=== PATIENT | female | born 1985 | race Caucasian/White ===

== ENCOUNTER 2018-05-10 14:43 | Emergency (ER) | payer SELFPAY ==
[2018-05-10 14:47] VITALS: BP 153/79; PULSE 80; RESP 20; TEMP 37.1; O2SAT 98
--- NOTE | 2018-05-10 15:21 | W.ED.GENAD ---
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 Tylenol and ibuprofen as needed for discomfort. You have an appointment next May 17 [address] Fuentes in women's wellness. Please keep appointment to discuss further diagnostic needs and treatment. If you develop new or worsening symptoms seek care urgently once again. Referrals: Siobhan Patterson MD [ [facility]YSICIAN] - ([phone]) Murray Chacon [Primary Care Provider] - Discharge Data Discharge Date/Time-TO BE ENTERED AT DEPARTURE: 05/10/18 17:11 Medical Decision Making Patient is a 32-year-old female presenting today with dysfunctional uterine bleeding. She reports that since the of her daughter, 4 years ago, she has had very heavy menses. Reports of the time of the of her child, she underwent a as well as bilateral tubal ligation. However, since then she has had heavy, extreme, horrific menses. Reports that she does get lightheaded around the time of her menses when she is bleeding. Cannot some have breakthrough. In between her regular menses. Last regular menstrual cycle was 1.5 weeks ago which lasted 8 days. She had spotting today but is not currently bleeding. She reports she was seen by an WAFER POLISHER after the of her child to discuss this and was advised that she was having miscarriages every month. She also reports that she has occasional twinges when she has her bleeding more so on the right side than the left. Is not currently endorsing any pain. States that she has chronic nausea associated with stress but no vomiting. No change in bowel habits. No change in urinary habits. Patient has history of anxiety, depression and dwarfism On exam, abdomen is soft and nontender. No acute abnormalities noted. Patient is noted to be slightly hypertensive at 153/79. Pulse of 80. Afebrile. Spoke with women's wellness was able to obtain the patient an appointment for next week with Dr. Fuentes Laboratory evaluation without significant abnormality. UPT is negative. No drop in hemoglobin. UA is normal. Discussed these findings with the patient. At this time, as the patient is going to be examined by an WAFER POLISHER next week, will hold off on pelvic exam particularly if she is not having any pain, discharge or bleeding at this time. We discussed new/worsening symptoms and when to seek care urgently once again. All of her questions and concerns were addressed she is in agreement this plan HPI General Mode of arrival: ambulatory. Date/Time Provider Initiated Documentation: 05/10/18 14:52. Limitations to Documentation: no limitations. Information obtained by: patient and family (friend). History of Present Illness 32 year old F presents to the emergency department with the chief complaint of heavy menstrual bleeding, described as mild (denies any pain at this time, no bleeding at this time), Patient started experiencing this year(s) (4) and it has been intermittent. No relieving factors improve symptom(s), No exacerbating factors reported . Patient notes weakness (when bleeding, none currently); denies chest pain, cough, fever/chills, headaches, loss of appetite, nausea/vomiting, rash, shortness of breath and syncope. Patient did receive the following treatments prior to arrival, none Related Data Home Medications Medication Instructions Recorded Confirmed Emergen-C 1 tab PO DAILY 05/10/18 05/10/18 Women's Multivitamin 1 tab PO DAILY 05/10/18 05/10/18 Allergies Allergy/AdvReac Type Severity Reaction Status Date / Time oxycodone HCl [From Percocet] Allergy Unverified 05/10/18 14:58 General Stated Complaint: WAFER POLISHER RAEANN: 3 Review of Systems Constitutional Reports as per HPI, Denies chills, Denies fatigue, Denies fever(s) and Denies headache(s) ENT Denies headache(s) Cardiovascular Reports as per HPI, Denies chest pain and Denies dyspnea Respiratory Denies dyspnea Gastrointestinal Reports as per HPI, Denies abdominal pain, Denies melena, Denies bloating, Denies change in bowel habits, Reports nausea (chronic, unchanged. Reports low appetite at baseline, no change) and Denies vomiting Genitourinary Reports as per HPI, Reports abnormal menses, Reports abnormal vaginal bleeding, Reports metrorrhagia, Denies hematuria, Denies urinary frequency, Reports menorrhagia, Reports dysmenorrhea, Denies dysuria, Denies pelvic pain, Denies urinary urgency, Denies vaginal discharge and Denies vaginal odor Musculoskeletal Reports as per HPI and Reports back pain (chronic, unchanged) Integumentary/Breasts Reports as per HPI and Denies rash Neurologic Denies headache(s) Endocrine Denies fatigue [facility] Medical History Dwarfism Joint pain Trichomonas infection Surgical History section Family History Father Dwarf Son Dwarf Social History Smoking/Tobacco Use Status: Current every day Exam Const General: cooperative, healthy appearing, comfortable, no acute distress and well developed Nutritional Appearance: average body habitus and well nourished Orientation: alert and awake HENHI Head: normal to inspection Mouth: moist mucous membranes Resp Effort & Inspection: normal respiratory effort, able to speak in complete sentences and no respiratory distress Auscultation: clear to auscultation bilaterally, no rales, no rhonchi and no wheezes Cardio Rate: regular rate Rhythm: regular rhythm Heart Sounds: S1 normal and S2 normal GI Inspection: normal to inspection, no abdominal wall ecchymosis, no edema and non-distended Palpation: soft, no hepatosplenomegaly, not firm, no guarding, not rigid, nontender and No ascites Percussion: normal to percussion Auscultation: normal bowel sounds Back/Spine/Pelvis Back: no CVA tenderness Skin General skin exam: no rashes or lesions noted Trauma: no lacerations or abrasions Neuro General: alert and awake Cognition: normal cognition Speech: speech normal Gait: normal gait Psych Appearance: grossly normal and well kempt Mental Status: mental status grossly normal Speech and Movement: speech and movement normal Course Vital Signs Temperature 37.1 C 05/10/18 14:47 Pulse 80 05/10/18 14:47 Respiratory Rate 20 05/10/18 14:47 Blood Pressure 153/79 H 05/10/18 14:47 Pulse Oximetry 98 12/21/18 14:47 Temperature 37.1 C 05/10/18 14:47 Temperature Source Temporal Artery Scan 05/10/18 14:47 Pulse 80 05/10/18 14:47 Respiratory Rate 20 05/10/18 14:47 Respiratory Effort Non-Labored 05/10/18 14:55 Blood Pressure 153/79 H 05/10/18 14:47 Blood Pressure Position Sitting 05/10/18 14:47 Pulse Oximetry 98 05/10/18 14:47 Oxygen Delivery Method Room Air 05/10/18 14:47 Oxygen Flow Rate 0 05/10/18 14:47 Pain Level 0 05/10/18 14:47
[2018-05-10 15:53] LABS: Abs Immature Grans 0.03 k/cumm (0.0-0.09); Absolute Basophil Count 0.07 k/cumm (0.0-0.2); Absolute Eosinophil Count 0.05 k/cumm (0.0-0.7); Absolute Lymphocyte Count 3.12 k/cumm (1.2-3.4); Absolute Monocyte Count 0.66 k/cumm (0.11-0.7); Absolute Neutrophil Count 6.91 k/cumm (1.2-6.7); Basophils % 0.6; Eosinophils % 0.5; HCT 42.4 % (36.0-46.0); HGB 14.9 g/dL (12.0-15.5); Immature Grans % 0.3; Lymphocytes % 28.8; Mean Corp. HGB Concentration 35.1 g/dL (32.0-36.0); Mean Corpuscular Volume 91.2 fL (80-95); Mean Platelet Volume 9.7 fL (8.0-11.0); Monocytes % 6.1; Neutrophils % 63.7; Platelet Count 392 x1000/uL (130-400); RBC 4.65 m/cumm (4.00-5.20); White Blood Cell Count 10.85 k/cumm (4.4-10.8)
[2018-05-10 15:53] LABS: Bilirubin Negative (Negative); Blood Negative (Negative); Clarity Clear; Glucose Negative (Negative); Ketones Negative (Negative); Leukocyte Esterase Negative (Negative); Nitrite Negative (Negative); Urobilinogen 0.2 EU/dL (Up TO 0.2)
[2018-05-10 16:06] LABS: ALT 18 U/L (12-78); AST 13 U/L (15-37); Albumin 4.2 g/dL (3.4-5.0); Alkaline Phosphatase 64 U/L (46-116); Anion Gap 9.2 mmol/L (3-11); BUN 6 mg/dL (7-18); Bilirubin, Total 0.4 mg/dL (0.2-1.0); CO2 27.8 mmol/L (21.0-32.0); CREATININE 0.54 mg/dL (0.55-1.02); Calcium 9.3 mg/dL (8.5-10.1); Chloride 104 mmol/L (98-107); Glucose 118 mg/dL (70-100); Potassium 3.8 mmol/L (3.5-5.1); Sodium 141 mmol/L (136-145); Total Protein 7.4 g/dL (6.4-8.2)
[2018-05-10 17:03] VITALS: BP 142/78; PULSE 70; RESP 14; O2SAT 100
--- NOTE | 2018-05-10 17:04 | ED.GENADUL_ITS ---
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 Tylenol and ibuprofen as needed for discomfort. You have an appointment next May 17 at [address] Fuentes in women's wellness. Please keep appointment to discuss further diagnostic needs and treatment. If you develop new or worsening symptoms seek care urgently once again. Referrals: Siobhan Patterson MD [ [facility] ST[facility]FF PHYSICIAN] - ([phone]) Murray Chacon [Primary Care Provider] - Discharge Data Discharge Date/Time-TO BE ENTERED AT DEPARTURE: 05/10/18 17:11 Medical Decision Making Patient is a 32-year-old female presenting today with dysfunctional uterine bleeding. She reports that since the of her daughter, 4 years ago, she has had very heavy menses. Reports of the time of the of her child, she underwent a as well as bilateral tubal ligation. However, since then she has had heavy, extreme, horrific menses. Reports that she does get lightheaded around the time of her menses when she is bleeding. Cannot some have breakthrough. In between her regular menses. Last regular menstrual cycle was 1.5 weeks ago which lasted 8 days. She had spotting today but is not currently bleeding. She reports she was seen by an SELF PROPELLED MINING MACHINE OPERATOR after the of her child to discuss this and was advised that she was having miscarriages every month. She also reports that she has occasional twinges when she has her bleeding more so on the right side than the left. Is not currently endorsing any pain. States that she has chronic nausea associated with stress but no vomiting. No change in bowel habits. No change in urinary habits. Patient has history of anxiety, depression and dwarfism On exam, abdomen is soft and nontender. No acute abnormalities noted. Patient is noted to be slightly hypertensive at 153/79. Pulse of 80. Afebrile. Spoke with women's wellness was able to obtain the patient an appointment for next week with Dr. Fuentes Laboratory evaluation without significant abnormality. UPT is negative. No drop in hemoglobin. UA is normal. Discussed these findings with the patient. At this time, as the patient is going to be examined by an SELF PROPELLED MINING MACHINE OPERATOR next week, will hold off on pelvic exam particularly if she is not having any pain, discha rge or bleeding at this time. We discussed new/worsening symptoms and when to seek care urgently once again. All of her questions and concerns were addressed she is in agreement this plan HPI General Mode of arrival: ambulatory . Date/Time Provider Initiated Documentation: 05/10/18 14:52 . Limitations to Documentation: no limitations . Information obtained by: patient and family (friend) . History of Present Illness 32 year old F presents to the emergency department with the chief complaint of heavy menstrual bleeding, described as mild (denies any pain at this time, no bleeding at this time), Patient started experiencing this year(s) (4) and it has been intermittent. No relieving factors improve symptom(s), No exacerbating factors reported . Patient notes weakness (when bleeding, none currently); denies chest pain, cough, fever/chills, headaches, loss of appetite, nausea/vomiting, rash, shortness of breath and syncope. 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 Reports low appetite at baseline, no change) and Denies vomiting Genitourinary Reports as per HPI, Reports abnormal menses, Reports abnormal vaginal bleeding, Reports metrorrhagia, Denies hematuria, Denies urinary frequency, Reports menorrhagia, Reports dysmenorrhea, Denies dysuria, Denies pelvic pain, Denies urinary urgency, Denies vaginal discharge and Denies vaginal odor Musculoskeletal Reports as per HPI and Reports back pain (chronic, unchanged) Integumentary/Breasts Reports as per HPI and Denies rash Neurologic Denies headache(s) Endocrine Denies fatigue [facility] Medical History Dwarfism Joint pain Trichomonas infection Surgical History section Family History Father Dwarf Son Dwarf Social History Smoking/Tobacco Use Status: Current every day Exam Const General: cooperative, healthy appearing, comfortable, no acute distress and well developed Nutritional Appearance: average body habitus and well nourished Orientation: alert and awake [facility] Head: normal to inspection Mouth: moist mucous membranes Resp Effort & Inspection: normal respiratory effort, able to speak in complete sentences and no respiratory distress Auscultation: clear to auscultation bilaterally, no rales, no rhonchi and no wheezes Cardio Rate: regular rate Rhythm: regular rhythm Heart Sounds: S1 normal and S2 normal GI Inspection: normal to inspection, no abdominal wall ecchymosis, no edema and non-distended Palpation: soft, no hepatosplenomegaly, not firm, no guarding, not rigid, nontender and No ascites Percussion: normal to percussion Auscultation: normal bowel sounds Back/Spine/Pelvis Back: no CVA tenderness Skin General skin exam: no rashes or lesions noted Trauma: no lacerations or abrasions Neuro General: alert and awake Cognition: normal cognition Speech: speech normal Gait: normal gait Psych Appearance: grossly normal and well kempt Mental Status: mental status grossly normal Speech and Movement: speech and movement normal Course Vital Signs Temperature 37.1 C 05/10/18 14:47 Pulse 80 05/10/18 14:47 Respiratory Rate 20 05/10/18 14:47 Blood Pressure 153/79 H 05/10/18 14:47 Pulse Oximetry 98 05/10/18 14:47 Temperature 37.1 C 05/10/18 14:47 Temperature Source Temporal Artery Scan 05/10/18 14:47 Pulse 80 05/10/18 14:47 Respiratory Rate 20 05/10/18 14:47 Respiratory Effort Non-Labored 05/10/18 14:55 Blood Pressure 153/79 H 05/10/18 14:47 Blood Pressure Position Sitting 05/10/18 14:47 Pulse Oximetry 98 05/10/18 14:47 Oxygen Delivery Method Room Air 05/10/18 14:47 Oxygen Flow Rate 0 05/10/18 14:47 Pain Level 0 05/10/18 14:47
== END 2018-05-10 17:11 | disposition home or self-care (01) ==
PROVIDERS: Emergency Provider Physician Assistant; PCP Family Medicine
DX: N93.8 Other specified abnormal uterine and vaginal bleeding (principal); R11.0 Nausea; R42 Dizziness and giddiness
CPT/HCPCS: 36415; 80053; 81025; 99282; 81003; 85025

== ENCOUNTER 2018-05-17 13:39 | Outpatient (REF) | payer SELFPAY ==
--- NOTE | 2018-05-17 11:40 | PAPFT_PTH ---
PATIENT: BECKY EVERETT LOC: [facility] U#:[id number] AGE/SX: 32/F ROOM: RE05/17/[address]: Zack Fuentes MD : [id number] BED: DIS: 05/17/2018 SPEC #: [id number] RECD: 05/17/18 17:45 STATUS: MADIMoni REQ #: [id number] AMBER: 05/17/18 11:[address]: Zack Fuentes DEPT: [facility] Cytology RECD BY: Glenys Rivera ENTERED: 05/17/18 17:45 SP TYPE: PAPFT OTHR DR: Murray Chacon MD Tissues: 1 - CX/ENDOCX FOR PAP SMEARS Procedures: PAP THIN PREP/UVM Screening HPV DNA PROBE Comments: [id number]
== END 2018-05-17 13:59 ==
LOC: LBN 13:39
PROVIDERS: PCP Family Medicine; Visit Provider Obstetrics & Gynecology
DX: Z12.4 Encounter for screening for malignant neoplasm of cervix (principal); Z11.51 Encounter for screening for human papillomavirus (HPV)
CPT/HCPCS: 88142; 87624